=== PATIENT | female | born 1995 | race African-American/Black ===

== ENCOUNTER 2025-02-08 21:25 | Emergency (ER) | payer OTHER, SELFPAY ==
[2025-02-08 21:29] VITALS: BP 146/88
[2025-02-08] MEDS: TYLENOL 1000 MG PO (21:36)
--- NOTE | 2025-02-08 23:08 | ED.GENMED ---
History of Present Illness
General
Chief Complaint: Throat Problem
Source: patient
Exam Limitations: none
Time Seen by Provider: 02/08/25 22:05
Nursing documentation reviewed up to this point in time: agreed with
History of Present Illness
History of Present Illness:
29-year-old female presenting to the emergency department today with concerns of sore throat of the past 5 days or so. Has had nasal congestion cough. Denies any high fevers has been tolerated by mouth.
Past History
Past History
ED Past Medical History: None
ED Past Surgical History: None
Social History
Tobacco: Non-smoker
Alcohol: Occasional
Drug: None
Employment: Employed
Review of Systems
Review of Systems
Allergies reviewed?: Yes
All Other Systems: ROS reviewed and negative except as documented in HPI and ROS
Phy Exam
Physical Exam
Physical Exam:
GENERAL: Alert , in no apparent distress
EYE: pupils equal and reactive
NECK: Supple, no significant adenopathy.
ENT: Significant postnasal drip, uvula midline grossly patent airway submandibular lymph node enlarged no cervical lymphadenopathy o/p clr, mmm.
CARDIAC: Regular rate and rhythm .
LUNGS: Clear breath sounds bilaterally, no acute respiratory distress, no wheezes/rales/rhonchi
ABDOMEN: Soft, without focal tenderness, no r/g, no cvat
NEUROLOGICAL: Alert and oriented, no focal neuro deficits
SKIN: Warm and dry, skin intact.
MUSCULOSKELETAL: No edema, well perfused.
PSYCH: Normal and appropriate interaction.
Course
Orders/Labs/Results
Orders:
Orders
02/08/25 21:34
Rapid Strep Group A Urgent
CHARITY Source: Throat/Pharynx
Specimen Description:
Date Specimen was Collected: 02/08/25
Time Specimen was Collected: 21:32
02/08/25 21:35
Acetaminophen [Tylenol] 1,000 mg .ROUTE .STK-MED ONE
02/08/25 21:36
Acetaminophen [Tylenol] 1,000 mg PO NOW STA
02/08/25 23:08
Dexamethasone [Decadron] 10 mg PO NOW STA
Ketorolac [Toradol] 30 mg IM NOW STA
Vital Signs
Initial and Last Documented VS:
Initial Vital Signs
Temp Pulse Resp BP Pulse Ox
98.5 F 74 18 146/88 99
02/08/25 21:29 02/08/25 21:29 02/08/25 21:29 02/08/25 21:29 02/08/25 21:29
Last Documented Vital Signs
Temp Pulse Resp BP Pulse Ox
98.5 F 74 18 146/88 99
02/08/25 21:29 02/08/25 21:29 02/08/25 21:29 02/08/25 21:29 02/08/25 23:11
MDM/Problems Addressed
MDM/Problems Addressed:
29-year-old female presenting to the emergency department today with concerns of sore throat. Patient postnasal drip with minimal pharyngeal swelling. Uvula midline. Grossly patent airway. Written for symptomatic medications otherwise stable for
discharge. Strep test negative.
*Pulse Oximetry
SaO2: 99
Oxygen Mode of Delivery: Room air
Patient hypoxic: no (99)
*Critical Care Note
Total Time (30-74mins, 75-104mins- exclusive of procedures): Not Applicable
ED Attending Note
-
Portions of this chart may have been created with voice recognition software.� Occasional wrong word or��sound alike� substitutions may have occurred due to the inherent limitations of voice recognition software.
Discharge Plan
Departure
Patient Disposition: Home (Routine Discharge)
Date of Disposition: 02/08/25
Time of Disposition: 23:08
Patient with high blood pressure during this ER visit?: No
Condition: Good
Covid-19: Not Applicable
Discharge Problem:
Pharyngitis
Instructions: Sore Throat, Adult (DC)
Prescriptions:
New
fluticasone propionate [24 Hour Allergy Relief] 50 mcg/actuation spray,suspension
1 spray intranasal BID 7 Days Qty: 16 0RF
No Action
amoxicillin 500 mg capsule
500 mg PO BID Qty: 14 0RF
Referrals:
Stephenie Slade DO [Family Provider]
Activity Restrictions/Additional Instructions:
You came to the emergency department today with concerns of a sore throat. Here you likely have symptoms consistent with a viral pharyngitis. Please take the prescribed medications and return for any worsening, new or concerning symptoms.
Interventions
Interventions:
*Risk Screen - Suicide Last Done: 02/08/25 21:30
*General Assessment Last Done: 02/08/25 21:30
*Neglect/Abuse Screening Last Done: 02/08/25 21:30
*ED- Fall Risk Assessment Last Done: 02/08/25 23:31
*ED COVID-19 Vaccine History Last Done: 02/08/25 21:30
*ED Influenza Vaccine History Last Done: 02/08/25 21:30
*Nursing Disposition Last Done: 02/08/25 23:31
ED-EENT Assessment Last Done: 02/08/25 22:08
ED- Pulmonary Assessment Last Done: 02/08/25 22:08
Discharge Date and Time
Discharge Date/Time: 02/08/25 23:32
Print Language: TONGAN
[2025-02-08] MEDS: DECADRON 10 MG PO (23:23)
[2025-02-08] MEDS: TORADOL 30 MG IM (23:24)
== END 2025-02-08 23:32 | disposition home or self-care (01) ==
LOC: EMR 21:25
PROVIDERS: EMERGENCY PHYSICIAN Emergency Medicine; FAMILY PHYSICIAN Student in an Organized Health Care Education/Training Program
DX: J02.9 Acute pharyngitis, unspecified (principal)
CPT/HCPCS: 99284; 96372; 87070; 87880

== ENCOUNTER 2025-04-28 12:17 | Emergency (ER) | payer OTHER, SELFPAY ==
[2025-04-28 12:19] VITALS: BP 132/64
--- NOTE | 2025-04-28 13:12 | ED.MUSCINJ ---
HPI-Injury
General
Chief Complaint: Musculo-Skeletal Complaint
Source: patient
Exam Limitations: none
Time Seen by Provider: 04/28/25 13:06
History of Present Illness-Injury
Initial Injury comments:
30-year-old female presents for work-related injury. A large piece of wood fell on top of her right foot. States her pain to the dorsal right foot in the area of the large toe and foot. She has been having trouble bearing weight. No other
complaints at this time
Past History
Past History
ED Past Medical History: None
ED Past Surgical History: None
Social History
Tobacco: Non-smoker
Alcohol: Occasional
Drug: None
Employment: Employed
Phy Exam
Physical Exam
Physical Exam:
General: Well-appearing female in no acute respiratory distress
Musculoskeletal exam: Patient is tender over the dorsum of the right foot in the area of the first metatarsal and right large toe. No deformities. Skin is intact without abrasion or laceration
Vascular: 2+ DP pulse right foot
Neurologic: Good sensation in foot
Injury Course
Orders/Labs/Results
Orders:
Orders
04/28/25 12:23
Foot, Right 3 View [CR Foot - Right Min 3 Views] Urgent
Comment:
Reason For Exam: injury
04/28/25 13:12
Ortho Boot Right- Treatment ONCE
Short or tall?: Short
MDM/Problems Addressed
Differential Diagnosis Includes:
Right foot pain after heavy object falling on her foot. Consider contusion versus fracture. No significant swelling or deformity on exam. No concern for compartment syndrome. I personally visualized x-rays of the right foot which are negative
for fracture. Patient is having difficulty bearing weight, will place orthopedic boot.
*Pulse Oximetry
SaO2: 99
Oxygen Mode of Delivery: Room air
Patient hypoxic: no
*Critical Care Note
Total Time (30-74mins, 75-104mins- exclusive of procedures): Not Applicable
ED Attending Note
-
Portions of this chart may have been created with voice recognition software.� Occasional wrong word or��sound alike� substitutions may have occurred due to the inherent limitations of voice recognition software.
Discharge Plan
Departure
Patient Disposition: Home (Routine Discharge)
Date of Disposition: 04/28/25
Time of Disposition: 13:15
Patient with high blood pressure during this ER visit?: No
Discharge Problem:
Contusion
Instructions: Contusion (DC)
Prescriptions:
No Action
amoxicillin 500 mg capsule
500 mg PO BID Qty: 14 0RF
fluticasone propionate [24 Hour Allergy Relief] 50 mcg/actuation spray,suspension
1 spray intranasal BID 7 Days Qty: 16 0RF
Activity Restrictions/Additional Instructions:
Rest. Use boot for support and ambulating. Elevate for swelling. Use Tylenol or ibuprofen for pain. Return if worse otherwise follow-up with your work-related doctor
Interventions
Interventions:
*Neglect/Abuse Screening Last Done: 04/28/25 12:19
*ED COVID-19 Vaccine History Last Done: 04/28/25 12:19
*ED Influenza Vaccine History Last Done: 04/28/25 12:19
*Risk Screen - Suicide (C-SSRS) Last Done: 04/28/25 12:19
Discharge Date and Time
Print Language: [place]
== END 2025-04-28 13:49 | disposition home or self-care (01) ==
LOC: EMR 12:17
PROVIDERS: EMERGENCY PHYSICIAN Emergency Medicine; FAMILY PHYSICIAN Student in an Organized Health Care Education/Training Program
DX: S90.31XA Contusion of right foot, initial encounter (principal); W20.8XXA Other cause of strike by thrown, projected or falling object, initial encounter; Y93.89 Activity, other specified; Y92.89 Other specified places as the place of occurrence of the external cause; Y99.0 Civilian activity done for income or pay
CPT/HCPCS: 99283; 29515; 73630